=== PATIENT | female | born 1960 | race Caucasian/White ===

== ENCOUNTER 2018-06-07 18:09 | Inpatient (IN) ==
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
[2018-06-07] MEDS ORDERED: predniSONE 20 MG Tablet PO ONE (20:02)
[2018-06-07] MEDS ORDERED: Azithromycin 250 MG Tablet PO ONE (20:02)
[2018-06-07 20:07] LABS: Baso # (Auto) 0.1 th/mm3 (0.0-0.2); Baso % (Auto) 0.7 % (0.0-2.0); Eos % (Auto) 0.2 % (0.0-4.0); Hematocrit 42.8 % (35.0-46.0); Hemoglobin 14.5 gm/dL (11.6-15.3); Lymph % (Auto) 21.3 % (9.0-44.0); Mean Corpuscular HGB Conc 33.9 % (32.0-36.0); Mean Corpuscular Hemoglobin 30.5 pg (27.0-34.0); Mean Corpuscular Volume 89.9 fL (80.0-100.0); Mean Platelet Volume 7.8 fL (7.0-11.0); Mono # (Auto) 0.5 th/mm3 (0.0-0.9); Mono % (Auto) 5.5 % (0.0-8.0); Neut # (Auto) 6.7 th/mm3 (1.8-7.7); Neut % (Auto) 72.3 % (16.0-70.0); Platelet Count 242 th/mm3 (150-450); Red Blood Count 4.77 mil/mm3 (4.00-5.30); Red Cell Distribution Width 12.7 % (11.6-17.2); White Blood Count 9.3 th/mm3 (4.0-11.0)
[2018-06-07 20:34] LABS: Albumin 3.7 g/dL (3.4-5.0); Anion Gap 7 meq/L (5-15); Aspartate Aminotransferase 11 U/L (15-37); Blood Urea Nitrogen 16 mg/dL (7-18); Calcium 9.1 mg/dL (8.5-10.1); Carbon Dioxide 27.4 meq/L (21.0-32.0); Chloride 105 meq/L (98-107); Glomerular Filtration Rate 60 mL/min (>89); Glucose,Random 120 mg/dL (74-106); Magnesium 2.1 mg/dL (1.5-2.5); Potassium 4.2 meq/L (3.5-5.1); Sodium 139 meq/L (136-145)
[2018-06-07 20:35] LABS: Alanine Aminotransferase 18 U/L (10-53)
[2018-06-07 20:45] LABS: Alkaline Phosphatase 76 U/L (45-117); Thyroid Stimulating Hormone 0.506 uIU/mL (0.358-3.740); Total Protein 7.3 g/dL (6.4-8.2)
[2018-06-07 21:42] LABS: Bilirubin,Urine Negative (Negative); Clarity,Urine Clear (Clear); Color,Urine Straw (Yellw/Straw); Glucose,Urine (UA) Negative (Negative); Leukocyte Esterase,Urine Trace (Negative); Nitrite,Urine Negative (Negative); Specific Gravity,Urine 1.008 (1.002-1.035); Squamous Epithelial Cell,Urine <1 /hpf (0-5)
[2018-06-07 21:51] LABS: Amphetamine Screen,Urine Neg (Neg); Cannabinoid Screen,Urine Neg (Neg); Cocaine Screen,Urine Neg (Neg)
[2018-06-07 21:52] LABS: Opiate Screen,Urine Neg (Neg)
[2018-06-07 21:58] LABS: Barbiturate Screen,Urine Neg (Neg)
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
[2018-06-08] MEDS ORDERED: LORazepam 0.5 MG Tablet PO PRN (13:59)
[2018-06-08] MEDS ORDERED: Bisacodyl 10 MG Supp RECTAL PRN (13:59)
[2018-06-08] MEDS ORDERED: Aluminum/Magnesium/Simethacone Susp 30 ML UDC PO PRN (13:59)
[2018-06-09] MEDS: Azithromycin 250 MG Tablet PO SCH (09:28)
[2018-06-09 10:04] LABS: Calcium 9.1 mg/dL (8.5-10.1); Carbon Dioxide 30.5 meq/L (21.0-32.0); Potassium 3.5 meq/L (3.5-5.1)
[2018-06-09 10:21] LABS: Chol/HDL Ratio 2.65 Ratio; HDL Cholesterol 57.7 mg/dL (40.0-60.0)
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
[2018-06-09 13:22] LABS: Hemoglobin A1c 5.1 % (4.3-6.0)
[2018-06-10 05:52] VITALS: O2SAT 98
[2018-06-10] MEDS: Azithromycin 250 MG Tablet PO SCH (08:55)
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
--- NOTE | 2018-06-10 23:41 | ECG ---
Date Performed: 06/09/2018 Time Performed: 10:18:45 PTAGE: 58 years EKG: Sinus rhythm NORMAL ECG PREVIOUS TRACING : 01/17/2009 12.49 DOCTOR: Ilia Alejandro Interpretating Date/Time 06/10/2018 23:39:17
[2018-06-11 06:18] VITALS: TEMP 98.4
[2018-06-11] MEDS: Azithromycin 250 MG Tablet PO SCH (08:41)
[2018-06-11] MEDS ORDERED: Sertraline 50 MG Tablet PO SCH (09:15)
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
[2018-06-11 16:59] VITALS: BP 112/57; PULSE 70; RESP 16
== END 2018-06-11 17:20 | disposition home or self-care (01) | DRG 885 ==
LOC: NEPJ 18:09 → NEDA 06-08 14:09 → H260 06-08 16:49
PROVIDERS: ADMIT Psychiatry & Neurology Child & Adolescent Psychiatry; ATTEND Psychiatry & Neurology Child & Adolescent Psychiatry